=== PATIENT | female | born 1965 | race Caucasian/White ===

== ENCOUNTER 2021-03-11 20:35 | Emergency (ER) | payer OTHER, MEDICARE ==
[2021-03-12] MEDS ORDERED: SOTROVIMAB (EUA) 500 MG in SODIUM CHLORIDE 0.9% 100 ML IVPB ONE (01:15)
[2021-03-12] MEDS ORDERED: SODIUM CHLORIDE 0.9% 50 ML IVPB ONE (01:15)
--- NOTE | 2021-03-12 01:53 | XR ---
EXAMINATION TYPE: XR chest 1V portable DATE OF EXAM: 03/12/2021 COMPARISON: NONE HISTORY: Chest pain TECHNIQUE: Single view FINDINGS: Heart and mediastinum are normal. Lungs are clear. Diaphragm is normal. Bony thorax is inta ct. IMPRESSION: Normal chest. No change.
--- NOTE | 2021-03-12 02:03 | ED ---
General Adult HPI - General Chief complaint: Headache Stated complaint: COVID+,Wants antibodies Time Seen by Provider: 03/12/21 00:23 Source: patient, family, RN notes reviewed Mode of arrival: ambulatory Limitations: no limitations - History of Present Illness Initial comments: Patient is a 55-year-old female with history of heart disease, presenting to the emergency department after having a home positive Covid test. Patient states today she started having a mild sore throat, headache and body aches. She taken at home test which was positive. She is presenting here for monoclonal antibodies. She denies any chest pains or shortness of breath, no fevers. She denies any abdominal pain, no vomiting or diarrhea. Patient has no further complaints. - Related Data Previous Rx's Medication Instructions Recorded Ondansetron Odt [Zofran Odt] 4 mg PO Q8HR PRN #10 tab 03/12/21 Allergies Allergy/AdvReac Type Severity Reaction Status Date / Time Iodinated Contrast Media Allergy Rash/Hives Verified 03/11/21 21:48 Iodine and Iodide Containing Allergy Rash/Hives Verified 03/11/21 21:48 Produc latex Allergy Rash/Hives Verified 03/11/21 21:48 shrimp Allergy Rash/Hives Verified 03/11/21 21:48 Review of Systems ROS Statement: Those systems with pertinent positive or pertinent negative responses have been documented in the HPI. ROS Other: All systems not noted in ROS Statement are negative. Past Medical History Past Medical History: Myocardial Infarction (DC) Additional Past Medical History / Comment(s): lymphoma, septic necrosis History of Any Multi-Drug Resistant Organisms: None Reported Past Surgical History: Cholecystectomy, Hysterectomy, Joint Replacement, Orthopedic Surgery, Tonsillectomy Past Psychological History: Anxiety, Depression Smoking Status: Former smoker Past Alcohol Use History: None Reported Past Drug Use History: None Reported General Exam - General Exam Comments Initial Comments: GENERAL: Patient is well-developed and well-nourished. Patient is nontoxic and in no acute distress. HEAD: Atraumatic, normocephalic. EYES: Pupils equal round and reactive to light, extraocular movements intact, sclera anicteric, conjunctiva are normal. Eyelids were unremarkable. ENT: Nares patent, oropharynx clear without exudates. Moist mucous membranes. NECK: Normal range of motion, supple without lymphadenopathy or JVD. LUNGS: Unlabored respirations. Breath sounds clear to auscultation bilaterally and equal. No wheezes rales or rhonchi. HEART: Slightly tachycardia rate and rhythm without murmurs, rubs or gallops. ABDOMEN: Soft, nontender, normoactive bowel sounds. No guarding, no rebound. No masses appreciated. MUSCULOSKELETAL: Normal extremities with adequate strength and normal range of motion, no pitting or edema. No clubbing or cyanosis. NEUROLOGICAL: Patient is alert and oriented x 3. SKIN: Warm, Dry, normal turgor, no rashes or lesions noted. Limitations: no limitations Course Vital Signs 03/11/21 03/12/21 21:42 01:30 Temperature 99.3 F 98.6 F Pulse Rate 117 H 111 H Respiratory 22 16 Rate Blood Pressure 201/92 167/79 O2 Sat by Pulse 98 97 Oximetry Medical Decision Making - Medical Decision Making Patient is a 55-year-old female here with viral type symptoms that started today with a sore throat, body aches. Stick and at home Covid test which was positive. We did reconfirm that today with a rapid test which was also positive. She is requesting monoclonal antibodies, she received these without adverse side effects. Her chest x-ray is normal. I recommended continuing with Tylenol and/or Motrin for fever control and body aches. Recommend increasing her fluids. She is stable for discharge. - Lab Data Lab Results 03/12/21 Range/Units 00:52 Coronavirus (PCR) Detected A (Not Detectd) Disposition Clinical Impression: COVID-19 Disposition: HOME SELF-CARE Condition: Stable Instructions (If sedation given, give patient instructions): Coronavirus Disease 2019 (COVID-19) Additional Instructions: Please return to the Emergency Department if symptoms worsen or any other concerns. May take Zofran for additional nausea or vomiting. Tylenol or motrin for any fevers/pain Please follow-up with your primary care as needed. Prescriptions: Ondansetron Odt [Zofran Odt] 4 mg PO Q8HR PRN #10 tab PRN Reason: Nausea Is patient prescribed a controlled substance at d/c from ED?: No Referrals: Jessica Arzate DO [Primary Care Provider] - 1-2 days Time of Disposition: 02:56
[2021-03-12 03:14] VITALS: BP 165/82; PULSE 107; RESP 20; TEMP 98.2
== END 2021-03-12 03:39 | disposition home or self-care (01) ==
LOC: EC 20:35
DX: U07.1 COVID-19 (principal); I25.2 Old myocardial infarction; F41.9 Anxiety disorder, unspecified; F32.A Depression, unspecified; Z87.891 Personal history of nicotine dependence
CPT/HCPCS: 87635; 71045; 99284; 96360; Q0247

== ENCOUNTER → 2024-09-26 | Outpatient (CLI) | payer MEDICARE, OTHER ==
--- NOTE | 2024-09-26 13:44 | US ---
EXAMINATION TYPE: US thyroid st tissue head/neck DATE OF EXAM: 09/26/2024 COMPARISON: NONE CLINICAL INDICATION: Female, 59 years old with history of R22.0 LOCALIZED SWELLING, MASS AND LUMP, HE AD; Pt states nodule seen on Carotid scan at outside facility TECHNIQUE: Grayscale and color Doppler imaging of the thyroid gland. FINDINGS: GLAND SIZE: Right Lobe: 3.6 x 1.1 x 0.8 cm Overall Parenchyma: homogeneous Left Lobe: 3.4 x 1.4 x 1.4 cm Overall Parenchyma: homogeneous Isthmus Thickness: 0.2 cm NODULES RIGHT: # of nodules measured on right: 0 LEFT: # of nodules measured on left: 1 1. 1.0 X 0.9 x 0.9 cm, mid, Prior size: No prior here TIRADS Score: 4 TIRADS Category 4: Composition: Solid or almost completely solid (2 points). Echogenicity: Hypoechoic (2 points). Shape: Wider than tall (0 points). Margin: Smooth (0 points). Echogenic foci: None or large comet-tail artifacts (0 points) Recommendation: If >1.5cm: FNA; If >1cm: Follow up at 1,2, 3,5 years ISTHMUS: # of nodules measured in the isthmus: 0 Bilateral neck scanned, no evidence of lymphadenopathy. Nodule left lobe. IMPRESSION: Left thyroid nodule which is TR 4 image criteria for follow-up in one year. Highest TI-RADS level nodule reported: 2017 ACR TI-RADS LEVEL: TI-RADS assessment score and recommendation for follow-up based on appropriate scoring and treatment protocols. TR1 Benign No FNA TR2 Not suspicious No FNA TR3: If nodule size is ? 2.5 cm, FNA is recommended. If nodule size is ? 1.5 cm, follow-up imaging at 1, 3, and 5 years is recommended. TR4: If nodule size is ? 1.5 cm, FNA is recommended. If nodule size is ? 1.0 cm, follow-up imaging at 1, 2, 3, and 5 years is recommended. TR5: If nodule size is ? 1.0 cm, FNA is recommended. If nodule size is ? 0.5 cm, annual follow-up for up to 5 years is recommended. TR 1 thyroid nodules have a 0.3 % risk of malignancy. TR 2 thyroid nodules have a 1.5 % risk of malignancy. TR 3 thyroid nodules have a 4.8 % risk of malignancy. TR 4 thyroid nodules have a 9.1 % risk of malignancy. TR 5 thyroid nodules have a 35 % risk of malignancy. [email or web address] [facility], , 09/26/2024 1:41 PM
== END | disposition home or self-care (01) ==
LOC: RADUSWWP 12:59
PROVIDERS: ATTEND Family Medicine
DX: E04.2 Nontoxic multinodular goiter (principal); R22.0 Localized swelling, mass and lump, head
CPT/HCPCS: 76536